=== PATIENT | female | born 1935 | race Caucasian/White ===

== ENCOUNTER 2021-05-23 03:19 | Emergency (ER) | payer MEDICARE, OTHER ==
--- NOTE | 2021-05-23 03:39 | EDM.PDOC ---
ED HPI GENERAL MEDICAL PROBLEM - General Chief Complaint: Upper Extremity Injury/Pain Stated Complaint: LEFT ELBOW INJURY Time Seen by Provider: 05/23/21 03:36 Source of Information: Reports: Patient History Limitations: Reports: No Limitations - History of Present Illness INITIAL COMMENTS - FREE TEXT/NARRATIVE: Patient is a 86-year-old female who presents for left elbow pain. Patient was walking down steps and when she had her last that she missed that and fell to her left side striking her elbow. Patient not hit her head or have any LOC. Patient currently denies elbow pain is made worse with trying to range it. She is not take any medication for this pain. She is at her baseline. 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 [Unable to Verify Home Med List] 05/23/21 [History] Review of Systems - Review of Systems Review Of Systems: See Below Constitutional: Reports: No Symptoms Eyes: Reports: No Symptoms Ears: Reports: No Symptoms Nose: Reports: No Symptoms Mouth/Throat: Reports: No Symptoms Respiratory: Reports: No Symptoms Cardiovascular: Reports: No Symptoms GI/Abdominal: Reports: No Symptoms Genitourinary: Reports: No Symptoms Musculoskeletal: Reports: Arm Pain Skin: Reports: No Symptoms Neurological: Reports: No Symptoms Psychiatric: Reports: No Symptoms ED EXAM, GENERAL - Physical Exam Exam: See Below Exam Limited By: No Limitations General Appearance: Alert, WD/WN, No Apparent Distress Eye Exam: Bilateral Eye: EOMI, PERRL Ears: Normal External Exam Nose: Normal Inspection Throat/Mouth: Normal Inspection Head: Atraumatic, Normocephalic Neck: Normal Inspection, Non-Tender Respiratory/Chest: No Respiratory Distress, Lungs Clear, Normal Breath Sounds Cardiovascular: Normal Peripheral Pulses, Regular Rate, Rhythm GI/Abdominal: Normal Bowel Sounds, Soft, Non-Tender Extremities: Normal Inspection, Non-Tender. No: Normal Range of Motion (Likely due to pain) Neurological: Alert, Oriented ED TRAUMA EXTREMITY PROCEDURES - Splinting Left Upper Extremity Splint Site: elbow Pre-Procedure NV Status: Normal Post-Procedure NV Status: Normal Splint Material: Fiberglass Splint Design: Posterior Applied & Form Fitted By: Provider, Nurse Provider Post-Splint Application NV Check: NV Status Normal Complications: No Course - Vital Signs Last Recorded V/S: Last Vital Signs Temp 98.3 F 05/23/21 03:28 Pulse 62 05/23/21 03:28 Resp 18 05/23/21 03:28 BP 134/60 05/23/21 03:28 Pulse Ox 62 L 05/23/21 03:28 - Orders/Labs/Meds Orders: Active Orders 24 hr Category Date Time Status DME for Discharge [COMM] Stat Oth 05/23/21 04:49 Ordered - Re-Assessments/Exams Free Text/Narrative Re-Assessment/Exam: 05/23/21 04:37 Patient x-ray shows a humerus fracture. Patient will be placed in a sling and will follow up with Ortho as outpatient. 05/23/21 04:47 Patient placed in a sling and still neurovascularly intact. Departure - Departure Time of Disposition: 04:38 Disposition: Home, Self-Care 01 Condition: Good Clinical Impression: Humeral distal fracture - Discharge Information *PRESCRIPTION DRUG MONITORING PROGRAM REVIEWED*: Not Applicable *COPY OF PRESCRIPTION DRUG MONITORING REPORT IN PATIENT MARY: Not Applicable Instructions: Humerus Fracture Treated With Immobilization, [id number] Referrals: PCP,None [Primary Care Provider] - Forms: ED Department Discharge Additional Instructions: The following information is given to patients seen in the emergency department who are being discharged to home. This information is to outline your options for follow-up care. We provide all patients seen in our emergency department with a follow-up referral. The need for follow-up, as well as the timing and circumstances, are variable depending upon the specifics of your emergency department visit. If you don't have a primary care physician on staff, we will provide you with a referral. We always advise you to contact your personal physician following an emergency department visit to inform them of the circumstance of the visit and for follow-up with them and/or the need for any referrals to a consulting specialist. The emergency department will also refer you to a specialist when appropriate. This referral assures that you have the opportunity for follow-up care with a specialist. All of these measure are taken in an effort to provide you with optimal care, which includes your follow-up. Under all circumstances we always encourage you to contact your private physician who remains a resource for coordinating your care. When calling for follow-up care, please make the office aware that this follow-up is from your recent emergency room visit. If for any reason you are refused follow-up, please contact the [facility] Emergency Department at and asked to speak to the emergency department charge nurse. Please follow up with your primary care physician. If you do not have a primary care physician, see below: [facility] - Orthopedic Clinic Professional Building [address] [place] [address], [address] [place] [address] Orthopedic Surgery [id number] [place] [address] [address] You were seen today after a fall. Your x-ray shows a fracture of your distal humerus. We placed you in a sling for this. Above the number of the orthopedic surgeon here in [place] also in [place]. Please call and obtain an appointment for your follow-up. If you have any increased pain or other concerning symptoms please return to the ED otherwise follow-up with orthopedic surgeons above. Call this week to make an appointment. Sepsis Event Note (ED) - Focused Exam Vital Signs: Vital Signs Temp Pulse Resp BP Pulse Ox 05/23/21 03:28 98.3 F 62 18 134/60 62 L - My Orders Last 24 Hours: My Active Orders 05/23/21 04:49 DME for Discharge [COMM] Stat - Assessment/Plan Last 24 Hours: My Active Orders 05/23/21 04:49 DME for Discharge [COMM] Stat Plan: Patient is 86-year-old female presents today for left elbow pain after missing a step and falling onto it. No deformity noted will obtain x-rays and reassess.
--- NOTE | 2021-05-23 04:29 | CR ---
Indication: Fall, pain Technique: Three views Comparison: None Findings: There is a transverse fracture of the distal humerus consistent with a supracondylar fracture. There is anterior displacement of the distal fracture fragment of 6 millimeters and anterior angulation of the distal fracture fragment. Associated elbow effusion with adjacent soft tissue swelling. Dictated by Gamaliel Lim MD @ 05/23/2021 4:28:10 AM (Electronically Signed)
[2021-05-23] MEDS ORDERED: Acetaminophen 500 MG Tab PO ONE (07:50)
== END 2021-05-23 08:36 | disposition home or self-care (01) ==
LOC: MW.ED 03:19
DX: S42.402A Unspecified fracture of lower end of left humerus, initial encounter for closed fracture (principal); W22.8XXA Striking against or struck by other objects, initial encounter
CPT/HCPCS: 29105; 73080; 99283; A9270

== ENCOUNTER 2022-03-17 19:16 | Inpatient (IN) | payer MEDICARE, OTHER ==
[2022-03-17] MEDS ORDERED: LORazepam 2 MG/ML SDV ONE (19:25)
[2022-03-17] MEDS ORDERED: Sodium Chloride 0.9% 1,000 ML IV ONE (19:31)
[2022-03-17] MEDS ORDERED: diphenhydrAMINE 50 MG/ML SDV IVPUSH STA (19:46)
[2022-03-17] MEDS ORDERED: LORazepam 2 MG/ML SDV IVPUSH STA (19:47)
[2022-03-17 19:54] LABS: CARBON DIOXIDE,CO2 30.5 mmol/L (21.0-32.0); POTASSIUM,K 3.7 mmol/L (3.5-5.1)
[2022-03-17] MEDS ORDERED: Morphine 4 MG/ML VIAL IVPUSH ONE (21:06)
[2022-03-17] MEDS ORDERED: Ondansetron 4 MG/2 ML SDV IVPUSH ONE (21:06)
[2022-03-17] MEDS ORDERED: REMDESIVIR 200 MG in Sodium Chloride 0.9% 250 ML IV ONE (23:50)
[2022-03-18] MEDS ORDERED: Enoxaparin 40 MG/0.4 ML Syringe SUBCUT SCH (01:00)
[2022-03-18] MEDS: Dexamethasone 4 MG Tab PO SCH (02:52)
[2022-03-18 07:15] LABS: CARBON DIOXIDE,CO2 29.2 mmol/L (21.0-32.0); POTASSIUM,K 2.5 mmol/L (3.5-5.1)
[2022-03-18] MEDS ORDERED: Potassium Chloride 20 MEQ Tab.ER PO ONE (09:37)
[2022-03-18] MEDS ORDERED: NS with KCl 40mEq 1,000 ML IV SCH (09:45)
[2022-03-18] MEDS: Gabapentin 300 MG Cap PO SCH (10:49)
[2022-03-18] MEDS: Enoxaparin 40 MG/0.4 ML Syringe SUBCUT SCH (10:50)
[2022-03-18] MEDS: REMDESIVIR 100 MG in Sodium Chloride 0.9% 100 ML IV SCH (18:52)
[2022-03-19] MEDS: Dexamethasone 4 MG Tab PO SCH ×2 (00:28→23:33)
[2022-03-19] MEDS: Albuterol/Ipratropium 3.0-0.5 MG/3 ML Neb Soln NEB PRN (05:32)
[2022-03-19] MEDS: LORazepam 2 MG/ML SDV IVPUSH PRN ×2 (05:45→20:14)
[2022-03-19] MEDS ORDERED: Iopamidol 755 MG/ML 500 ML Multipack Bottle IVPUSH ONE (06:31)
[2022-03-19] MEDS: cefTRIAXone 1 GM in Sodium Chloride 0.9% 50 ML IV SCH (07:52)
[2022-03-19] MEDS: Azithromycin 500 MG in Sodium Chloride 0.9% 250 ML IV SCH (09:06)
[2022-03-19] MEDS: Enoxaparin 40 MG/0.4 ML Syringe SUBCUT SCH (09:12)
[2022-03-19] MEDS: Gabapentin 300 MG Cap PO SCH (09:21)
[2022-03-19 12:39] LABS: CARBON DIOXIDE,CO2 29.1 mmol/L (21.0-32.0); POTASSIUM,K 2.9 mmol/L (3.5-5.1)
[2022-03-19] MEDS ORDERED: Magnesium Sulfate/Water 2 GM in Premix Bag 1 BAG IV ONE (16:14)
[2022-03-19] MEDS ORDERED: NS with KCl 40mEq 1,000 ML IV ONE (16:21)
[2022-03-19] MEDS: REMDESIVIR 100 MG in Sodium Chloride 0.9% 100 ML IV SCH (18:48)
[2022-03-20] MEDS: LORazepam 2 MG/ML SDV IVPUSH PRN (03:10)
[2022-03-20 06:49] LABS: CARBON DIOXIDE,CO2 25.9 mmol/L (21.0-32.0); POTASSIUM,K 3.7 mmol/L (3.5-5.1)
[2022-03-20] MEDS: cefTRIAXone 1 GM in Sodium Chloride 0.9% 50 ML IV SCH (07:48)
[2022-03-20] MEDS: Azithromycin 500 MG in Sodium Chloride 0.9% 250 ML IV SCH (08:47)
[2022-03-20] MEDS: Enoxaparin 40 MG/0.4 ML Syringe SUBCUT SCH (08:49)
[2022-03-20] MEDS: Gabapentin 300 MG Cap PO SCH (14:29)
[2022-03-20] MEDS: REMDESIVIR 100 MG in Sodium Chloride 0.9% 100 ML IV SCH (19:12)
[2022-03-21] MEDS: Dexamethasone 4 MG Tab PO SCH (00:27)
[2022-03-21] MEDS: Dexamethasone 4 MG/ML SDV IVPUSH SCH ×2 (00:51→09:02)
[2022-03-21] MEDS: Albuterol/Ipratropium 3.0-0.5 MG/3 ML Neb Soln NEB PRN (01:31)
[2022-03-21 06:50] LABS: CARBON DIOXIDE,CO2 24.6 mmol/L (21.0-32.0); POTASSIUM,K 3.3 mmol/L (3.5-5.1)
[2022-03-21] MEDS: cefTRIAXone 1 GM in Sodium Chloride 0.9% 50 ML IV SCH (08:04)
[2022-03-21] MEDS ORDERED: Dexamethasone 4 MG/ML SDV IVPUSH SCH (09:00)
[2022-03-21] MEDS: Enoxaparin 40 MG/0.4 ML Syringe SUBCUT SCH (09:05)
[2022-03-21] MEDS: Azithromycin 500 MG in Sodium Chloride 0.9% 250 ML IV SCH (09:05)
[2022-03-21] MEDS ORDERED: Potassium Chloride 20 MEQ Tab.ER PO SCH (11:15)
[2022-03-21] MEDS ORDERED: Lactated Ringers 1,000 ML IV SCH (11:15)
[2022-03-21] MEDS: Potassium Chloride 100 ML IV SCH ×2 (12:35→15:24)
[2022-03-21] MEDS: Gabapentin 300 MG Cap PO SCH (12:36)
[2022-03-21] MEDS: REMDESIVIR 100 MG in Sodium Chloride 0.9% 100 ML IV SCH (19:15)
[2022-03-22] MEDS: LORazepam 2 MG/ML SDV IVPUSH PRN (01:14)
[2022-03-22] MEDS: cefTRIAXone 1 GM in Sodium Chloride 0.9% 50 ML IV SCH (06:51)
[2022-03-22 07:42] LABS: POTASSIUM,K 3.5 mmol/L (3.5-5.1)
[2022-03-22] MEDS: Azithromycin 500 MG in Sodium Chloride 0.9% 250 ML IV SCH (08:50)
[2022-03-22] MEDS: Enoxaparin 40 MG/0.4 ML Syringe SUBCUT SCH (09:53)
[2022-03-22] MEDS: Dexamethasone 4 MG/ML SDV IVPUSH SCH (09:56)
[2022-03-22] MEDS: Gabapentin 300 MG Cap PO SCH (14:07)
[2022-03-23] MEDS: cefTRIAXone 1 GM in Sodium Chloride 0.9% 50 ML IV SCH (06:50)
[2022-03-23] MEDS: Azithromycin 500 MG in Sodium Chloride 0.9% 250 ML IV SCH (07:50)
[2022-03-23 07:53] LABS: CARBON DIOXIDE,CO2 25.9 mmol/L (21.0-32.0); POTASSIUM,K 3.4 mmol/L (3.5-5.1)
[2022-03-23] MEDS: Enoxaparin 40 MG/0.4 ML Syringe SUBCUT SCH (10:51)
[2022-03-23] MEDS: Dexamethasone 4 MG/ML SDV IVPUSH SCH (10:51)
[2022-03-23] MEDS: Gabapentin 300 MG Cap PO SCH (10:55)
[2022-03-24] MEDS: cefTRIAXone 1 GM in Sodium Chloride 0.9% 50 ML IV SCH (06:45)
[2022-03-24 07:06] LABS: CARBON DIOXIDE,CO2 26.7 mmol/L (21.0-32.0); POTASSIUM,K 3.3 mmol/L (3.5-5.1)
[2022-03-24] MEDS ORDERED: Sodium Chloride 0.9% 500 ML IV ONE (07:45)
[2022-03-24] MEDS: Azithromycin 500 MG in Sodium Chloride 0.9% 250 ML IV SCH (07:58)
[2022-03-24] MEDS: Gabapentin 300 MG Cap PO SCH (08:00)
[2022-03-24] MEDS: Enoxaparin 40 MG/0.4 ML Syringe SUBCUT SCH (08:00)
[2022-03-24] MEDS: levETIRAcetam 500 MG Tab PO SCH (08:00)
[2022-03-24] MEDS: Dexamethasone 4 MG/ML SDV IVPUSH SCH (08:00)
[2022-03-24] MEDS: Potassium Chloride 100 ML IV SCH ×2 (09:15→13:08)
[2022-03-24] MEDS ORDERED: Polyethylene Glycol 3350 Powder 17 GM Packet PO ONE (12:30)
[2022-03-24] MEDS: Sennosides 8.6 MG Tab PO SCH (13:08)
[2022-03-25 07:40] LABS: CARBON DIOXIDE,CO2 20.5 mmol/L (21.0-32.0); POTASSIUM,K 4.2 mmol/L (3.5-5.1)
[2022-03-25] MEDS: cefTRIAXone 1 GM in Sodium Chloride 0.9% 50 ML IV SCH (07:54)
[2022-03-25] MEDS: Gabapentin 300 MG Cap PO SCH (08:01)
[2022-03-25] MEDS: Dexamethasone 4 MG/ML SDV IVPUSH SCH (08:01)
[2022-03-25] MEDS: levETIRAcetam 500 MG Tab PO SCH (08:01)
[2022-03-25] MEDS: Sennosides 8.6 MG Tab PO SCH (08:01)
[2022-03-25] MEDS: Enoxaparin 40 MG/0.4 ML Syringe SUBCUT SCH (08:02)
[2022-03-25] MEDS: Azithromycin 500 MG in Sodium Chloride 0.9% 250 ML IV SCH (09:11)
== END 2022-03-25 13:00 | DRG 177 ==
LOC: MW.ED 19:16 → MW.MS 23:50
PROVIDERS: ADMIT Internal Medicine; ATTEND Internal Medicine
PROC: XW033E5 Introduction of Remdesivir Anti-infective into Peripheral Vein, Percutaneous Approach, New Technology Group 5 (ICD-10-PCS; principal; 2022-03-17)
PROC: 3E0DX3Z Introduction of Anti-inflammatory into Mouth and Pharynx, External Approach (ICD-10-PCS; 2022-03-21)
DX: U07.1 COVID-19 (principal); R09.02 Hypoxemia; J12.82 Pneumonia due to coronavirus disease 2019; J96.01 Acute respiratory failure with hypoxia; J69.0 Pneumonitis due to inhalation of food and vomit; G30.9 Alzheimer's disease, unspecified; B02.9 Zoster without complications; F02.80 Dementia in other diseases classified elsewhere, unspecified severity, without behavioral disturbance, psychotic disturbance, mood disturbance, and anxiety; Z66 Do not resuscitate; R56.9 Unspecified convulsions; I10 Essential (primary) hypertension; R32 Unspecified urinary incontinence; Z20.822 Contact with and (suspected) exposure to COVID-19; Z79.899 Other long term (current) drug therapy; E87.6 Hypokalemia
CPT/HCPCS: 36415; 62270; 70450; 71045; 80053; 82248; 82803; 82945; 83605; 84157; 84484; 85025; 87040; 87070; 87205; 89050; 93005; 96365; 96375; 99285; J1200; J1953; J2060; J2270; J2405; J7030; U0002; 71275; 71275-26; 80048; 81001; 83735; 92526-GN; 92610-GN; 93010; 99222; 99232; 99239; A9270-GY; J0456; J0696; J1100; J1650; J3475; J3480; J7040; J7050; J7120; J7620-GY; J8540; Q9967

== ENCOUNTER 2022-06-14 09:54 | Emergency (ER) | payer MEDICARE, OTHER ==
[2022-06-14] MEDS ORDERED: Lidocaine/Epineph/Tetracaine 3 ML Syringe TOP ONE (10:10)
[2022-06-14] MEDS ORDERED: Diphtheria,Pertussis(Acell),Tetanus Vaccine 0.5 ML Syringe IM ONE (10:10)
== END 2022-06-14 13:42 | disposition home or self-care (01) ==
LOC: MW.ED 09:54
DX: S01.01XA Laceration without foreign body of scalp, initial encounter (principal); M48.54XA Collapsed vertebra, not elsewhere classified, thoracic region, initial encounter for fracture; K59.00 Constipation, unspecified; I10 Essential (primary) hypertension; Z23 Encounter for immunization; Z79.899 Other long term (current) drug therapy; W05.0XXA Fall from non-moving wheelchair, initial encounter
CPT/HCPCS: 12001; 70450; 71250; 72125; 72128; 72131; 74176; 90471; 90715; 93005; 99284; A9270

== ENCOUNTER 2022-08-28 01:41 | Emergency (ER) | payer MEDICARE, OTHER | END 2022-08-28 04:26 | disposition home or self-care (01) | LOC: MW.ED 01:41 | DX: S72.002A Fracture of unspecified part of neck of left femur, initial encounter for closed fracture (principal); I10 Essential (primary) hypertension; W05.0XXA Fall from non-moving wheelchair, initial encounter | CPT/HCPCS: 73502-26-LT; 73502-LT; 73552-26-LT; 73552-LT; 73590-26-LT; 73590-LT; 99283; 99284 ==